=== PATIENT | male | born 1995 | race Two or more races ===

== ENCOUNTER 2017-05-03 17:45 | Emergency (ER) | payer MEDICAID ==
[~2017-05-03] VITALS: Ht 177.8 cm; Wt 86.2 kg
[2017-05-03 17:57] VITALS: BP 143/82
[2017-05-03] MEDS ORDERED: HYDROcodone-ACET 10/325MG TAB PO ONE (18:30)
[2017-05-03] MEDS ORDERED: LIDOCAINE 1% HCL (LOCAL ANESTH.) INJ 20ML MDV IJ ONE (19:00)
[2017-05-03] MEDS ORDERED: TETANUS-DIPTH-ACEL PERTUSSIS 0.5ML SYRG IM ONE (19:45)
[2017-05-03] MEDS ORDERED: BACITRACIN TOP OINT 1 UD PKG TOP ONE (19:56)
== END 2017-05-03 20:42 | disposition home or self-care (01) ==
LOC: ER 17:50
DX: S52.001A Unspecified fracture of upper end of right ulna, initial encounter for closed fracture (principal); S51.811A Laceration without foreign body of right forearm, initial encounter; S81.811A Laceration without foreign body, right lower leg, initial encounter; E78.5 Hyperlipidemia, unspecified; W22.8XXA Striking against or struck by other objects, initial encounter; Y93.89 Activity, other specified; Y92.89 Other specified places as the place of occurrence of the external cause; Y99.8 Other external cause status
CPT/HCPCS: 12032; 29125; 73090; 73590; 90471; 90715; 99284; J2001

== ENCOUNTER 2017-06-15 10:13 | Emergency (ER) | payer MEDICAID ==
[~2017-06-15] VITALS: Ht 177.8 cm; Wt 103.0 kg
[2017-06-15 10:32] VITALS: BP 138/86
== END 2017-06-15 13:17 | disposition home or self-care (01) ==
LOC: ER 10:13
DX: S46.911A Strain of unspecified muscle, fascia and tendon at shoulder and upper arm level, right arm, initial encounter (principal); E78.5 Hyperlipidemia, unspecified; X58.XXXA Exposure to other specified factors, initial encounter; Y93.89 Activity, other specified; Y99.8 Other external cause status; Y92.89 Other specified places as the place of occurrence of the external cause
CPT/HCPCS: 73030